=== PATIENT | female | born 1985 | race Caucasian/White ===

== ENCOUNTER 2019-04-08 00:56 | Inpatient (IN) | payer SELFPAY ==
[2019-04-08] MEDS ORDERED: Lidocaine 1% w/Epinephrine 1:100K 20 ML VIAL ONE (02:45)
[2019-04-08] MEDS ORDERED: Morphine 2 MG/ML SYRINGE ONE (02:49)
[2019-04-08 02:54] LABS: #Eosinphils 0.1 thou/uL (0.0-0.7); #Lymphocytes 1.9 thou/uL (1.20-3.40); #Monocytes 0.8 thou/uL (0.11-0.59); #Neutrophils 6.3 thou/uL (1.40-6.50); %Basophils 0.5 % (0.0-1.0); %Eosinophils 0.9 % (0.0-10.0); %Lymphocytes 20.5 % (21.0-51.0); %Monocytes 8.7 % (0.0-10.0); %Neutrophils 69.4 % (42.0-75.0); Hemoglobin 12.3 g/dL (12.0-16.0); Mean Corpuscular HGB CONC 33.1 g/dL (32.0-36.0); Mean Corpuscular Hemoglobin 35.4 pg (27.0-31.0); Mean Platelet Volume 6.8 fL (7.4-10.4); Platelet Count 307 thou/uL (130-400); RBC Distribution Width 11.2 % (11.5-14.5); Red Blood Cell (RBC) Count 3.46 mill/uL (4.20-5.40); White Blood Cell (WBC) Count 9.1 thou/uL (4.8-10.8)
[2019-04-08 03:01] LABS: Anion Gap 13 mmol/L (10-20); BUN (Urea Nitrogen) 12 mg/dL (7.0-18.7); CK (CPK) 224 U/L (29-168); Calc. Creatinine Clearance 0 mL/min (70-130); Carbon Dioxide 22 mmol/L (22-29); Chloride 107 mmol/L (98-107); Estimated GFR-MDRD Greater than 90; Glucose 93 mg/dL (70-105); Potassium 3.6 mmol/L (3.5-5.1); Sodium 138 mmol/L (136-145)
[2019-04-08] MEDS ORDERED: Metoclopramide HCl 10 MG/2 ML VIAL ONE (03:51)
[2019-04-08 05:40] VITALS: BMI 23.6
[2019-04-08] MEDS ORDERED: MEROPENEM 1 GM/50 ML BAG IVPB SCH (06:00)
[2019-04-08] MEDS ORDERED: D5W IVPB SCH (06:00)
[2019-04-08] MEDS ORDERED: ADMIXTURE FEE CHEMO IVPB SCH (06:00)
[2019-04-08] MEDS ORDERED: CLINDAMYCIN IVPB SCH (06:00)
[2019-04-08] MEDS ORDERED: Morphine 4 MG/ML VIAL SLOW IVP SCH (06:15)
[2019-04-08] MEDS ORDERED: D5 1/2 NS w/20 mEq KCL 1,000 ML IV SCH (06:15)
[2019-04-08 06:34] LABS: #Eosinphils 0.1 thou/uL (0.0-0.7); #Monocytes 0.7 thou/uL (0.11-0.59); %Basophils 0.2 % (0.0-1.0); %Eosinophils 0.8 % (0.0-10.0); %Lymphocytes 22.3 % (21.0-51.0); %Monocytes 8.4 % (0.0-10.0); %Neutrophils 68.3 % (42.0-75.0); Hemoglobin 11.8 g/dL (12.0-16.0); Mean Corpuscular Hemoglobin 35.2 pg (27.0-31.0); Mean Platelet Volume 6.7 fL (7.4-10.4); Platelet Count 305 thou/uL (130-400); RBC Distribution Width 11.2 % (11.5-14.5); Red Blood Cell (RBC) Count 3.35 mill/uL (4.20-5.40); White Blood Cell (WBC) Count 8.8 thou/uL (4.8-10.8)
[2019-04-08 06:51] LABS: Lactic Acid 0.8 mmol/L (0.5-2.2)
[2019-04-08] MEDS ORDERED: Fentanyl 100 MCG/2 ML VIAL ONE (06:57)
[2019-04-08] MEDS ORDERED: Midazolam HCl 2 mg/2 ml Vial ONE (06:57)
[2019-04-08] MEDS ORDERED: Bupivacaine/Epinephrine 0.25% 30 ML VIAL ONE (07:05)
--- NOTE | 2019-04-08 07:05 | CON ---
DATE OF CONSULTATION: 04/08/2019 CHIEF COMPLAINT: Infection, right arm. HISTORY OF PRESENT ILLNESS: This is a 33-year-old female who presents with necrotizing fasciitis to her right arm. She injected methamphetamine in her right medial posterior forearm a few days ago. She has had progressive increasing pain. She has no motor or sensory loss to the hand. She states, however, it is painful to move and she has some paresthesias in the right hand. CT scan confirms a deep space infection. She has meropenem and clindamycin ordered. PAST MEDICAL HISTORY: 1. She notes lupus and antiphospholipid syndrome. States that she has had a PE in the past, but she cannot recall. She takes no blood thinners daily. 2. History of trauma. PAST SURGICAL HISTORY: She denies. MEDICATIONS TAKEN DAILY: None. ALLERGIES: PENICILLIN. SOCIAL HISTORY: She smokes. She smokes pot. She drinks alcohol 1 or 2 drinks daily. She almost daily uses meth. REVIEW OF SYSTEMS: Otherwise negative. PHYSICAL EXAMINATION: VITAL SIGNS: Pulse 85, respirations 20, temperature 98.5, blood pressure 135/92. HEENT: Sclerae anicteric. Oropharynx clear. NECK: No lymphadenopathy. CHEST: Clear. HEART: Regular rate and rhythm. ABDOMEN: Soft, nontender. EXTREMITY: Pulses are 2+, palpable. She has a few in her left antecubital fossa without significant infection. She has significant swelling and edema to the right upper extremity, very tender to touch, redness. There is no bulla formation. There is no obvious crepitance. DIAGNOSTIC DATA: CT scan again shows deep soft tissue infection right on the muscle underneath the fascia. ASSESSMENT: 1. Necrotizing fasciitis, right arm. 2. Polysubstance abuse. 3. Lupus and question of antiphospholipid syndrome. PLAN: She will need urgent debridement, incision and drainage. We will do that this morning plus or minus wound VAC and multiple debridements. Risks, benefits, and alternatives were discussed. She understands the risk of bleeding, infection, scarring, need for further revision or debridement. She understands the potential for motor or sensory loss that is permanent, permanent disability, even limb loss. We will do this today. Job ID: [id number]
[2019-04-08] MEDS ORDERED: Ondansetron PF 4 MG/2 ML Vial ONE (07:06)
--- NOTE | 2019-04-08 08:47 | CT ---
PRELIMINARY REPORT/[facility]/EMERGENCY AFTER HOURS PROCEDURE: EXAM: CT Right Upper Extremity With Contrast, Elbow EXAM DATE/TIME: 04/08/2019 2:26 AM CLINICAL HISTORY: 33 years old, female; Pain and signs and symptoms; Right; Patient HX: Er 2. PT reports to er xfr from [place] with necrotizing fascitis, comes to this er for infectious disease, SX. R elbow redness /hot to touch/swelling. TECHNIQUE: Imaging protocol: CT of the Right upper extremity with intravenous contrast was performed. Exam focus ed on the elbow. Coronal and sagittal reformatted images were created and reviewed. COMPARISON: No relevant prior studies available. FINDINGS: Bones/joints: Normal. No acute fracture or dislocation. Soft tissues: Extensive inflammation of subcutaneous tissue of the forearm, elbow, and upper arm with nonencapsulated fluid in the subcutaneous tissue of the posterior elbow. Findings are compatible wit h cellulitis. In the deep subcutaneous tissue of the lateral antecubital fossa, there is a cluster of foci of gas without history of iatrogenic intervention. This finding could represent necrotizing fas ciitis or could be secondary to expression of abscess or recent needle injection by patient. Medial t o the aforementioned cluster of gas, along the medial aspect of the proximal brachioradialis muscle (image 85, series 2) there is an approximately 1.2 cm fluid collection suspicious for an abscess. Vasculature: There is nonocclusive clot in the cephalic vein at the elbow and proximal forearm. IMPRESSION: 1. Extensive inflammation of subcutaneous tissue of the forearm, elbow, and upper arm with nonencapsu lated fluid in the subcutaneous tissue of the posterior elbow. Findings are compatible with celluliti s. 2. In the deep subcutaneous tissue of the lateral antecubital fossa, there is a cluster of foci of ga s without history of iatrogenic intervention. This finding could represent necrotizing fasciitis or c ould be secondary to expression of abscess or recent needle injection by patient. 3. Medial to the aforementioned cluster of gas, along the medial aspect of the proximal brachioradial is muscle (image 85, series 2) there is an approximately 1.2 cm fluid collection suspicious for an ab scess. 4. There is nonocclusive clot in the cephalic vein at the elbow and proximal forearm. Findings discussed with GOLD CARUSO MD at time of interpretation. Thank you for allowing us to participate in the care of your patient. Dictated and Authenticated by: Manfred Carlson MD 04/08/2019 2:56 AM Central Time ([place] & [place]) FINAL REPORT RIGHT UPPER EXTREMITY CT SCAN WITH IV CONTRAST: EMERGENT AFTER HOUR EXAM TIME: 2:28 a.m. DATE: 04/08/2019. There is diffuse subcutaneous fat stranding and fluid of the region primarily around the elbow includ ing some posterior fluid overlying the olecranon as well as a gas and fluid collection approximately 1.2 cm overlying the proximal brachial radialis muscle concerning for an abscess. There is a 2nd sma ll focus of subcutaneous gas slightly more cranial in location, both of these areas are concerning fo r infection with possibilities including that of small abscesses versus post injection changes or sparkle n the possibility of some superficial necrosing fasciitis. No evidence of deep necrosing fasciitis o intramuscular necrosis or abscess. Note of intraluminal thrombus within a portion of the cephalic v ein primarily at the level of the elbow. This report is in agreement with the preliminary report given by [facility]. POS: [facility]
[2019-04-08] MEDS ORDERED: Promethazine HCl 25 MG/ML VIAL IM PRN ×4 (08:49→09:10)
[2019-04-08] MEDS ORDERED: Dextrose 5% in Water 1,000 ML IV PRN (08:49)
[2019-04-08] MEDS ORDERED: TETANUS AND DIPHTHERIA TOX/PF 0.5 ML DISP.SYRIN IM ONE (08:49)
[2019-04-08] MEDS ORDERED: Ondansetron ODT 4 MG TAB PO PRN (08:49)
[2019-04-08] MEDS ORDERED: hydrALAZINE 20 MG/ML VIAL SLOW IVP PRN ×2 (08:49→11:43)
[2019-04-08] MEDS ORDERED: Ondansetron PF 4 MG/2 ML Vial IVP PRN ×2 (08:49→08:51)
[2019-04-08] MEDS ORDERED: Dextrose 50% Abboject 50 ML SYRINGE SLOW IVP PRN (08:49)
[2019-04-08] MEDS ORDERED: Acetaminophen 1,000 MG in Premix Bag 1 BAG IVPB PRN (08:49)
[2019-04-08] MEDS ORDERED: diphenhydrAMINE 50 MG/ML VIAL IVP PRN ×2 (08:51→09:10)
[2019-04-08] MEDS ORDERED: Naloxone HCl 0.4 mg/ml Vial IV PRN ×2 (08:51→09:10)
[2019-04-08] MEDS ORDERED: diphenhydrAMINE 25 MG CAP PO PRN ×2 (08:51→09:10)
[2019-04-08] MEDS ORDERED: Ondansetron HCl/PF 4 MG/2 ML Vial IVP PRN (08:51)
[2019-04-08] MEDS ORDERED: diphenhydrAMINE 50 MG/ML VIAL IM PRN ×2 (08:51→09:10)
[2019-04-08] MEDS ORDERED: Promethazine HCl 25 MG/ML VIAL SLOW IVP PRN (08:51)
[2019-04-08] MEDS ORDERED: Zolpidem Tartrate 5 MG TAB PO PRN ×2 (08:51→09:10)
[2019-04-08] MEDS ORDERED: Vancomycin HCl 1 GM in Premix Bag 1 BAG IVPB SCH (09:00)
[2019-04-08] MEDS ORDERED: Communication Order-Pharmacy FS SCH ×2 (09:00→09:15)
[2019-04-08] MEDS ORDERED: ISOVUE-370 76%-LOCM 1 ML ONE (10:53)
[2019-04-08] MEDS ORDERED: cloNIDine 0.1 MG TAB PO PRN (11:39)
[2019-04-08] MEDS ORDERED: Labetalol HCl 100 MG/20 ML VIAL SLOW IVP PRN (11:43)
[2019-04-08] MEDS: Vancomycin HCl 1.5 GM in Sodium Chloride 0.9% 250 ML 300 ML IVPB SCH ×2 (11:44→21:49)
[2019-04-08] MEDS ORDERED: Atorvastatin Calcium 10 MG TAB PO SCH (11:45)
[2019-04-08] MEDS: Lorazepam 2 MG/ML VIAL SLOW IVP PRN ×2 (11:46→19:08)
--- NOTE | 2019-04-08 11:51 | OP ---
DATE OF PROCEDURE: 04/08/2019 PREOPERATIVE DIAGNOSIS: Necrotizing fasciitis, right arm. POSTOPERATIVE DIAGNOSIS: Necrotizing fasciitis, right arm. PROCEDURE PERFORMED: Wide local debridement of right arm necrotizing fasciitis down to muscle compartment. TONGUE AND QUARTER STITCHER: Ken Lynn MD ANESTHESIA: General. ESTIMATED BLOOD LOSS: Minimal. COMPLICATIONS: None. SPECIMENS: Cultures taken for anaerobes and aerobes. DESCRIPTION OF PROCEDURE: The patient was taken to the operating room and laid supine on the operating room table. After general anesthetic, the right upper extremity was prepped and draped in a circumferential fashion to the shoulder. She had fluctuant area to the lateral antecubital fossa. An incision was made from this to an indurated area in the upper biceps area all the way down to the 3rd indurated area on the right anterior forearm. Dissection was taken through the subcutaneous tissue to the fascia. The fascia was opened for the entirety of the wound. There was a collection of pus just underneath the antecubital fossa with some necrotic-looking tissue. This was all debrided. All loculations were broken up. There was no muscle involvement. There was no nonviable muscle present. The pocket of pus in the antecubital does extend around posteriorly. All loculations were broken up with this. Pulsavac was used to irrigate the wound. Wound care places the wound VAC. The basilic vein had to be taken with Vicryl ties because it was right in the middle of the fascial involved area. The patient was sent to Recovery in stable condition. She will need staged debridement in 48 hours. Job ID: [id number]
[2019-04-08] MEDS: Famotidine 20 MG TAB PO SCH ×2 (12:35→19:51)
[2019-04-08] MEDS: D5 1/2 NS w/20 mEq KCL 1,000 ML IV SCH ×2 (12:35→15:50)
[2019-04-08] MEDS ORDERED: Succinylcholine Chloride 20 MG/ML 10 ml SYRINGE FS ONE (13:24)
[2019-04-08] MEDS ORDERED: PROPOFOL 200 MG/20 ML VIAL ONE (13:24)
--- NOTE | 2019-04-08 13:32 | HP ---
PRIMARY CARE PHYSICIAN: The patient does not have a primary care physician. CHIEF COMPLAINT: Infection in the right arm. HISTORY OF PRESENT ILLNESS: Ms. Wild is a 33-year-old female, who has a history of systemic lupus as well as lupus anticoagulant syndrome and hypertension. Currently, she is quite agitated and wants a cigarette and therefore, I am unable to get much history. She is tearful and says that this is the end of her days and that she just wants to smoke a cigarette. She says this repeatedly. I am unable to get any of the details for her current hospital stay other than what was in the records, but apparently she has apparently injected methamphetamine into her right arm and then developed a deep infection. She has already been in surgery to have this I and D'd, and a wound VAC has been placed. Currently, again, I am unable to get any other history as she goes from being agitated to tearful and no other history is obtainable. REVIEW OF SYSTEMS: Unobtainable. PAST MEDICAL HISTORY: Significant for systemic lupus and hypertension. PAST SURGICAL HISTORY: Negative. ALLERGIES: TO PENICILLIN. SOCIAL HISTORY: This is unobtainable, but she does admit to using the methamphetamine and she is a smoker as she is asking for cigarettes. FAMILY HISTORY: Significant for lupus. CURRENT MEDICATIONS: None. PHYSICAL EXAMINATION: GENERAL: She is alert and oriented. She is agitated, actually had to leave while doing the history and physical to go to calm her down. VITAL SIGNS: Her blood pressure is 135/92, heart rate 85, respiratory rate of 20, and temperature is 98.5. HEENT: Her pupils are equal, round, and reactive. Extraocular muscles are intact. Her sclerae are anicteric. Throat, no erythema and no exudates. NECK: No adenopathy. No bruits. LUNGS: She has bilateral wheezing and rhonchi. CARDIOVASCULAR: She has a normal S1, S2. There is no S3 or S4. No murmurs, clicks or rubs. ABDOMEN: Soft. It is nontender and nondistended. Positive for bowel sounds. There is no rebound or guarding. EXTREMITIES: There is no edema. NEUROLOGIC: Her exam is nonfocal. LABORATORY RESULTS: White blood cell count 8.8, hemoglobin 11.8, hematocrit is 35.8, and platelet count is 305. Sodium 138, potassium 3.6, chloride is 107, CO2 is 22, BUN of 12, creatinine 0.73, and glucose is 93. ASSESSMENT AND PLAN: 1. This is a 33-year-old female, who presents with a cellulitis and deep abscess of the right arm due to methamphetamine injection. She has already been seen by Surgery and has had the area I and D'd and has a wound VAC in place. We will continue IV antibiotics and local wound care. 2. For elevated blood pressure, we will use clonidine p.r.n. and likely start her on a scheduled antihypertensive. 3. Agitation, anxiety, and suicidal ideation. This could be due to the toxic effect of the methamphetamine. Hopefully, after she recovers from the acute toxic effect of the drug, her symptoms will calm down. We have placed her with a sitter and will also have p.r.n. Ativan available, and we will consult [facility] once she is more clinically stable. Job ID: [id number]
[2019-04-08] MEDS: MEROPENEM 1 GM/50 ML 1 GM in Premix Bag 1 BAG IVPB SCH ×2 (15:47→23:16)
[2019-04-09] MEDS: Lorazepam 2 MG/ML VIAL SLOW IVP PRN (05:24)
[2019-04-09] MEDS: D5 1/2 NS w/20 mEq KCL 1,000 ML IV SCH ×2 (05:24→16:58)
[2019-04-09 07:07] LABS: #Basophils 0.1 thou/uL (0.0-0.2); #Eosinphils 0.1 thou/uL (0.0-0.7); #Lymphocytes 1.5 thou/uL (1.20-3.40); #Monocytes 0.5 thou/uL (0.11-0.59); #Neutrophils 3.4 thou/uL (1.40-6.50); %Eosinophils 1.4 % (0.0-10.0); %Lymphocytes 27.5 % (21.0-51.0); %Monocytes 9.3 % (0.0-10.0); %Neutrophils 60.8 % (42.0-75.0); Hemoglobin 12.1 g/dL (12.0-16.0); Mean Corpuscular HGB CONC 33.6 g/dL (32.0-36.0); Mean Corpuscular Hemoglobin 35.9 pg (27.0-31.0); Mean Platelet Volume 6.7 fL (7.4-10.4); Platelet Count 288 thou/uL (130-400); RBC Distribution Width 11.1 % (11.5-14.5); Red Blood Cell (RBC) Count 3.38 mill/uL (4.20-5.40); White Blood Cell (WBC) Count 5.6 thou/uL (4.8-10.8)
[2019-04-09 07:25] LABS: Anion Gap 10 mmol/L (10-20); BUN (Urea Nitrogen) 6 mg/dL (7.0-18.7); Calc. Creatinine Clearance 143 mL/min (70-130); Calcium 8.8 mg/dL (7.8-10.44); Carbon Dioxide 27 mmol/L (22-29); Chloride 105 mmol/L (98-107); Estimated GFR-MDRD Greater than 90; Glucose 93 mg/dL (70-105); Potassium 3.7 mmol/L (3.5-5.1); Sodium 138 mmol/L (136-145)
[2019-04-09] MEDS: MEROPENEM 1 GM/50 ML 1 GM in Premix Bag 1 BAG IVPB SCH ×3 (08:56→23:50)
[2019-04-09] MEDS: Famotidine 20 MG TAB PO SCH ×2 (08:58→21:35)
[2019-04-09] MEDS: Vancomycin HCl 1.5 GM in Sodium Chloride 0.9% 250 ML 300 ML IVPB SCH ×2 (10:33→22:32)
--- NOTE | 2019-04-09 14:45 | PDOC.PN ---
- Subjective Encounter Start Date: 04/09/19 Encounter Start Time: 11:00 Ms. Wild was seen today in follow-up. she is a bit less agitated today. Her only concern today is whether her boyfriend plans to see her today or not. - Objective MAR Reviewed: Yes Vital Signs & Weight: Vital Signs (12 hours) Temp Pulse Resp BP Pulse Ox 04/09/19 11:44 98.2 F 92 16 101/67 96 04/09/19 08:56 99 04/09/19 07:41 98.5 F 117 H 16 146/86 H 99 Weight Admit Weight 155 lb 8 oz Weight 155 lb 8 oz I&O: 04/08/19 04/09/19 04/10/19 06:59 06:59 06:59 Intake Total 667.5 1440 Balance 667.5 1440 Result Diagrams: 04/09/19 06:45 04/09/19 06:45 Phys Exam - Physical Examination HEENT: PERRLA Respiratory: no wheezing, no rales, no rhonchi, clear to auscultation bilateral Cardiovascular: RRR, no significant murmur, no rub Gastrointestinal: soft, non-tender, no distention, positive bowel sounds Musculoskeletal: no edema, edema present Dx/Plan (1) Necrotizing fasciitis of upper arm Code(s): M72.6 - NECROTIZING FASCIITIS Status: Acute (2) Hypertension Code(s): I10 - ESSENTIAL (PRIMARY) HYPERTENSION Status: Chronic (3) Substance abuse Code(s): F19.10 - OTHER PSYCHOACTIVE SUBSTANCE ABUSE, UNCOMPLICATED Status: Acute (4) Suicidal ideation Code(s): R45.851 - SUICIDAL IDEATIONS Status: Acute - Plan * Necrotizing faciitis of the right arm- continue IV antibiotics- wound culture is growing Bacillus spp, Non Anthrax..Continue Vancomycin and Meropenem * Can consider de-escalating antibiotics soon * HTN- blood pressure is beginning to trend down * Suicidal Ideation- continue 24 hour sitter, and she will need [facility] evaluation prior to discharge
[2019-04-09] MEDS ORDERED: Haloperidol Lactate 5 MG/ML VIAL IM PRN (18:06)
[2019-04-09] MEDS ORDERED: Vancomycin HCl 1.25 GM in Sodium Chloride 0.9% 250 ML 250 ML IVPB SCH (22:30)
[2019-04-10] MEDS: D5 1/2 NS w/20 mEq KCL 1,000 ML IV SCH ×3 (04:20→19:01)
[2019-04-10] MEDS: Vancomycin HCl 1.25 GM in Sodium Chloride 0.9% 250 ML 250 ML IVPB SCH ×3 (05:13→21:54)
[2019-04-10] MEDS: Famotidine 20 MG TAB PO SCH ×2 (07:50→21:51)
[2019-04-10] MEDS: MEROPENEM 1 GM/50 ML 1 GM in Premix Bag 1 BAG IVPB SCH ×3 (08:08→23:24)
[2019-04-10] MEDS ORDERED: Bupivacaine/Epinephrine 0.25% 30 ML VIAL ONE (10:34)
[2019-04-10] MEDS ORDERED: Fentanyl 100 MCG/2 ML VIAL ONE (10:46)
[2019-04-10] MEDS ORDERED: Meperidine HCl/PF 25 MG/ML VIAL SLOW IVP PRN (11:51)
[2019-04-10] MEDS ORDERED: Promethazine HCl 25 MG/ML VIAL SLOW IVP PRN (11:51)
[2019-04-10] MEDS ORDERED: Promethazine HCl 25 MG/ML VIAL IM PRN (11:51)
[2019-04-10] MEDS ORDERED: Ondansetron HCl/PF 4 MG/2 ML Vial IVP PRN (11:51)
--- NOTE | 2019-04-10 13:01 | OP ---
DATE OF PROCEDURE: 04/10/2019 PREOPERATIVE DIAGNOSIS: Necrotizing fasciitis, right arm. POSTOPERATIVE DIAGNOSIS: Necrotizing fasciitis, right arm. PROCEDURE PERFORMED: Wound washout and VAC placement under anesthesia. ANESTHESIA: General. BLOOD LOSS: None. COMPLICATIONS: None. SPECIMENS: None. FINDINGS: There was no additional debridement needed. There was no purulence. No pockets. No additional fasciitis. Wound VAC was replaced. DESCRIPTION OF PROCEDURE: The patient was taken to the operating room and laid supine on the operating room table. After general anesthetic was obtained, the right upper extremity was prepped and draped in a sterile fashion. After the VAC top cover was removed, the Adaptic, the 3 pieces of foam were removed. The wound was washed out using copious amounts of sterile saline. There were few bleeders in the subcutaneous tissue. There was no purulence. There was no ongoing infection. There was no fasciitis or necrotic tissue present. There were no additional pockets on the arm. After irrigation, the wound care team came in and put the wound VAC back on. Job ID: [id number]
--- NOTE | 2019-04-10 13:43 | PDOC.PN ---
- Subjective Encounter Start Date: 04/10/19 Encounter Start Time: 13:38 Ms. Wild was seen today in follow-up of necrotizing fasciitis of the arm. She continues to complain that she would like to smoke, but she is refusing the nicotine patch. She has been verbally abusive to staff as well. - Objective MAR Reviewed: Yes Vital Signs & Weight: Vital Signs (12 hours) Temp Pulse Resp BP Pulse Ox 04/10/19 08:00 100 04/10/19 07:19 97.7 F 66 16 100/68 98 04/10/19 04:20 98.2 F 82 20 122/87 100 Weight Admit Weight 155 lb 8 oz Weight 155 lb 8 oz I&O: 04/09/19 04/10/19 04/11/19 06:59 06:59 06:59 Intake Total 667.5 4130 Balance 667.5 4130 Result Diagrams: 04/09/19 06:45 04/09/19 06:45 Phys Exam - Physical Examination HEENT: PERRLA Respiratory: no wheezing, no rales, no rhonchi, clear to auscultation bilateral Cardiovascular: RRR, no significant murmur, no rub Gastrointestinal: soft, non-tender, no distention, positive bowel sounds Musculoskeletal: pulses present, edema present + swelling in the right upper extremity and wound vac is in place no lower extremity edema Dx/Plan (1) Necrotizing fasciitis of upper arm Code(s): M72.6 - NECROTIZING FASCIITIS Status: Acute (2) Hypertension Code(s): I10 - ESSENTIAL (PRIMARY) HYPERTENSION Status: Chronic (3) Substance abuse Code(s): F19.10 - OTHER PSYCHOACTIVE SUBSTANCE ABUSE, UNCOMPLICATED Status: Acute (4) Suicidal ideation Code(s): R45.851 - SUICIDAL IDEATIONS Status: Acute - Plan * Necrotizing fasciitis of the right upper extremity- wound vac is in place- culture from the wound is growing Bascillus spp. Non Anthax * Will continue the current antibiotics * Consult ID for antibiotic choice and length of therapy * HTN- blood pressure is stable * Suicidal Ideation- will ask [facility] to complete an evaluation as to her suicide potential. She tells me she is no longer suicidal, and she was only saying this because she was " coming of the Anesthesia in a bad way". She has stated this emphatically to me and the other staff caring for her.
[2019-04-10] MEDS ORDERED: Succinylcholine Chloride 20 MG/ML 10 ml SYRINGE FS ONE (15:49)
[2019-04-10] MEDS ORDERED: Ondansetron PF 4 MG/2 ML Vial ONE (15:49)
[2019-04-10] MEDS ORDERED: PROPOFOL 200 MG/20 ML VIAL ONE (15:49)
[2019-04-10] MEDS ORDERED: Lidocaine 1% PF 5 ML VIAL ONE (15:49)
[2019-04-10] MEDS: Lorazepam 2 MG/ML VIAL SLOW IVP PRN ×2 (15:59→21:14)
[2019-04-10] MEDS ORDERED: Ziprasidone 20 MG VIAL IM PRN (21:26)
[2019-04-10] MEDS ORDERED: Sterile Water 10 ML VIAL FS PRN (21:35)
[2019-04-11] MEDS: D5 1/2 NS w/20 mEq KCL 1,000 ML IV SCH ×3 (03:46→20:34)
[2019-04-11] MEDS: Vancomycin HCl 1.25 GM in Sodium Chloride 0.9% 250 ML 250 ML IVPB SCH ×3 (05:36→23:25)
--- NOTE | 2019-04-11 07:32 | PDOC.GSPN ---
Surgery Progress Note: Subj - Subjective Patient reports: pain well controlled Narrative: She specifically denies suicidal ideation or desire to harm herself or others Surgery Progress Note: Obj - Vital signs Vital signs: Vital Signs - Most Recent Temp Pulse Resp BP Pulse Ox 97.8 F 81 16 105/71 98 04/11/19 03:30 04/11/19 03:30 04/11/19 03:30 04/11/19 03:30 04/11/19 03:30 - Physical Exam General: no distress Cardiovascular: regular rate and rhythm Respiratory: clear to auscultation Wound: wound vac Surgery Progress Note: Results - Labs Result Diagrams: 04/09/19 06:45 04/09/19 06:45 Lab results: Laboratory Results - last 24 hr 04/10/19 21:06 Vancomycin Trough 14.0 Surgery Progress Note: A/P - Problem (1) Necrotizing fasciitis of upper arm Current Visit: Yes Code(s): M72.6 - NECROTIZING FASCIITIS Status: Acute - Plan Plan: Will take suicidal watch off -Continue wound vac -dressing change tomorrow in OR
[2019-04-11] MEDS: Famotidine 20 MG TAB PO SCH ×2 (08:16→20:31)
[2019-04-11] MEDS: MEROPENEM 1 GM/50 ML 1 GM in Premix Bag 1 BAG IVPB SCH ×2 (08:16→16:18)
[2019-04-11] MEDS ORDERED: cloNIDine 0.1 MG TAB PO PRN (11:22)
--- NOTE | 2019-04-11 11:24 | PDOC.PN ---
- Subjective Encounter Start Date: 04/11/19 Encounter Start Time: 11:22 Patient seen and examined for Rt arm nec fasc. Pain controlled. No diarrhea. No new complaints. No overnight events - Objective MAR Reviewed: Yes Vital Signs & Weight: Vital Signs (12 hours) Temp Pulse Resp BP Pulse Ox 04/11/19 08:10 98 04/11/19 08:00 98.3 F 83 16 121/82 98 04/11/19 03:30 97.8 F 81 16 105/71 98 04/10/19 23:23 98.2 F 85 20 133/85 98 Weight Admit Weight 155 lb 8 oz Weight 155 lb 8 oz I&O: 04/10/19 04/11/19 04/12/19 06:59 06:59 06:59 Intake Total 4130 1310 Balance 4130 1310 Result Diagrams: 04/09/19 06:45 04/09/19 06:45 Radiology Reviewed by me: Yes (RUE XR - reviewed) Phys Exam - Physical Examination Constitutional: NAD Respiratory: no wheezing, no rhonchi Cardiovascular: RRR, no rub Gastrointestinal: soft, non-tender, positive bowel sounds Musculoskeletal: no edema RUE wound vac+ Neurological: moves all 4 limbs Dx/Plan - Plan DVT proph w/SCDs IMPRESSION: Necrotizing fascitis of Right arm s/p I&D HTN Polysubstance abuse PCN allergy PLAN: Cont Vanc/Meropenem NPO past MN for surgery in AM Monitor Vancomycin level On [employer] for pain control Cont current meds as below Treat constipation Review of Systems - Review of Systems Respiratory: negative: Cough, Dry, Shortness of Breath, Hemoptysis, SOB with Excertion, Pleuritic Pain, Sputum, Wheezing Cardiovascular: negative: chest pain, palpitations, orthopnea, paroxysmal nocturnal dyspnea, edema, light headedness, other Gastrointestinal: Constipation. negative: Nausea, Vomiting, Abdominal Pain, Diarrhea, Melena, Hematochezia, Other - Medications/Allergies Allergies/Adverse Reactions: Allergies Allergy/AdvReac Type Severity Reaction Status Date / Time Penicillins Allergy Verified 04/08/19 21:49 Medications: Current Medications Albuterol/Ipratropium (Duoneb) 3 ml NEB Q4H PRN PRN Reason: Wheezing Clonidine (Catapres) 0.1 mg PO Q4H PRN PRN Reason: SBP Greater Than 180 Dextrose/Water (Dextrose 50%) 25 gm SLOW IVP PRN PRN PRN Reason: Hypoglycemia Diphenhydramine HCl (Benadryl) 25 mg IVP Q3H PRN PRN Reason: Itching Diphenhydramine HCl (Benadryl) 25 mg PO Q3H PRN PRN Reason: Itching Diphenhydramine HCl (Benadryl) 25 mg IM Q3H PRN PRN Reason: Itching Famotidine (Pepcid) 20 mg PO BID [facility] Last Admin: 04/11/19 08:16 Dose: 20 mg Glucagon (Glucagon) 1 mg IM PRN PRN PRN Reason: Hypoglycemia Hydralazine HCl (Apresoline) 10 mg SLOW IVP Q4H PRN PRN Reason: SBP > 180 and HR < 70 Potassium Chloride/Dextrose/Sod Cl (D5 1/2 Ns W/20 Meq Kcl) 1,000 mls @ 120 mls /hr IV .Q8H20M [facility] Last Admin: 04/11/19 08:16 Dose: 1,000 mls Dextrose/Water (D5w) 1,000 mls @ 0 mls/hr IV .Q0M PRN PRN Reason: Hypoglycemia Meropenem 1 gm/ Device 50 mls @ 100 mls/hr IVPB 0800,1600,[id number] [facility] Last Admin: 04/11/19 08:16 Dose: 50 mls Fentanyl Citrate 2,000 mcg/ (Sodium Chloride) 100 mls @ 0 mls/hr IV INF PRN PRN Reason: Pain Vancomycin HCl 1.25 gm/ Sodium (Chloride) 250 mls @ 166.667 mls/hr IVPB Q8HR [facility] Last Admin: 04/11/19 05:36 Dose: 250 mls Lorazepam (Ativan) 2 mg SLOW IVP Q6H PRN PRN Reason: Anxiety/Agitation Last Admin: 04/10/19 21:14 Dose: 2 mg Miscellaneous Medication (Pharmacy To Dose) 1 each IVPB ONE PRN PRN Reason: DOSING Stop: 05/08/19 09:09 Multivitamins (Theragran) 1 tab PO DAILY [facility] Naloxone HCl (Narcan) 0.2 mg IV Q5MIN PRN PRN Reason: Opiate Reversal Ondansetron HCl (Zofran) 4 mg IVP Q6H PRN PRN Reason: Nausea/Vomiting Promethazine HCl (Phenergan) 12.5 mg IM Q4H PRN PRN Reason: Nausea/Vomiting Saccharomyces Boulardii (Florastor) 250 mg PO DAILY [facility] Senna/Docusate Sodium (Senokot S) 1 tab PO BID [facility] Sodium Chloride (Flush - Normal Saline) 10 ml IVF PRN PRN PRN Reason: Saline Flush Zolpidem Tartrate (Ambien) 5 mg PO HSPRN PRN PRN Reason: Insomnia
[2019-04-11] MEDS ORDERED: Polyethylene Glycol 3350 17 GM Packet PO PRN (11:26)
[2019-04-11] MEDS: Senokot S 8.6-50 MG TAB PO SCH (20:31)
[2019-04-11 22:07] LABS: Vancomycin, Trough 16.2 ug/mL
[2019-04-12] MEDS: MEROPENEM 1 GM/50 ML 1 GM in Premix Bag 1 BAG IVPB SCH ×3 (00:46→16:46)
[2019-04-12] MEDS: D5 1/2 NS w/20 mEq KCL 1,000 ML IV SCH ×2 (05:34→20:32)
[2019-04-12] MEDS: Vancomycin HCl 1.25 GM in Sodium Chloride 0.9% 250 ML 250 ML IVPB SCH ×3 (07:37→23:29)
[2019-04-12] MEDS: Multivit, Therapeutic 1 TAB PO SCH (10:46)
[2019-04-12] MEDS: Famotidine 20 MG TAB PO SCH ×2 (10:46→21:17)
[2019-04-12] MEDS: Saccharomyces boulardii 250 MG CAP PO SCH (10:54)
[2019-04-12] MEDS: Senokot S 8.6-50 MG TAB PO SCH ×2 (10:55→21:17)
[2019-04-12] MEDS ORDERED: Ondansetron PF 4 MG/2 ML Vial ONE (11:07)
[2019-04-12] MEDS ORDERED: PROPOFOL 200 MG/20 ML VIAL ONE (11:07)
[2019-04-12] MEDS ORDERED: Dexamethasone 20 MG/5 ML VIAL ONE (11:07)
[2019-04-12] MEDS ORDERED: Lidocaine 1% PF 5 ML VIAL ONE (11:07)
[2019-04-12] MEDS ORDERED: Bupivacaine HCl 0.5%/Epinephrine 1:200,000/PF 30 ml Vial ONE (17:31)
[2019-04-12 17:55] LABS: BHCG - Serum Negative (NEGATIVE); Pregs Control Background? CLEAR/WHITE (CLR/WHITE); Pregs Control Bar Appear? YES (CONTROL BAR)
[2019-04-12] MEDS ORDERED: Midazolam HCl 2 mg/2 ml Vial ONE (19:01)
[2019-04-12] MEDS ORDERED: Fentanyl 100 MCG/2 ML VIAL ONE ×3 (19:01→20:21)
[2019-04-12] MEDS ORDERED: Promethazine HCl 25 MG/ML VIAL IM PRN (20:04)
[2019-04-12] MEDS ORDERED: HYDROmorphone 2 MG/ML VIAL SLOW IVP PRN (20:04)
[2019-04-12] MEDS ORDERED: Ondansetron HCl/PF 4 MG/2 ML Vial IVP PRN (20:04)
[2019-04-12] MEDS ORDERED: Promethazine HCl 25 MG/ML VIAL SLOW IVP PRN (20:04)
[2019-04-12] MEDS ORDERED: Ketorolac Tromethamine 30 MG/ML VIAL IVP PRN (20:04)
[2019-04-12] MEDS: fentaNYL Citrate/PF 2,000 MCG in Sodium Chloride 0.9% 60 ML IV PRN (21:10)
--- NOTE | 2019-04-12 22:53 | PDOC.PN ---
- Subjective Encounter Start Date: 04/12/19 Encounter Start Time: 07:15 Patient seen and examined for RUE nec fasc. No fever. Pain controlled. No new complaints. No overnight events - Objective MAR Reviewed: Yes Vital Signs & Weight: Vital Signs (12 hours) Temp Pulse Resp BP Pulse Ox 04/12/19 15:38 98.4 F 77 16 138/74 99 04/12/19 11:39 98.1 F 77 16 111/73 100 Weight Admit Weight 155 lb 8 oz Weight 155 lb 8 oz I&O: 04/11/19 04/12/19 04/13/19 06:59 06:59 06:59 Intake Total 1310 2630 1950 Balance 1310 2630 1950 Result Diagrams: 04/09/19 06:45 04/09/19 06:45 Phys Exam - Physical Examination Constitutional: NAD Respiratory: no wheezing, no rhonchi Cardiovascular: RRR, no rub Gastrointestinal: soft, positive bowel sounds Musculoskeletal: edema present (RUE) Neurological: non-focal, moves all 4 limbs Dx/Plan - Plan DVT proph w/SCDs IMPRESSION: Necrotizing fascitis of Right arm s/p I&D HTN Polysubstance abuse PCN allergy PLAN: Cont Vanc/Meropenem NPO today for surgery Vancomycin monitoring Pain control with [employer] Cont current meds as below AM labs Review of Systems - Review of Systems Respiratory: negative: Cough, Dry, Shortness of Breath, Hemoptysis, SOB with Excertion, Pleuritic Pain, Sputum, Wheezing Cardiovascular: negative: chest pain, palpitations, orthopnea, paroxysmal nocturnal dyspnea, edema, light headedness, other Gastrointestinal: negative: Nausea, Vomiting, Abdominal Pain, Diarrhea, Constipation, Melena, Hematochezia, Other - Medications/Allergies Allergies/Adverse Reactions: Allergies Allergy/AdvReac Type Severity Reaction Status Date / Time Penicillins Allergy Verified 04/08/19 21:49 Medications: Current Medications Albuterol/Ipratropium (Duoneb) 3 ml NEB Q4H PRN PRN Reason: Wheezing Clonidine (Catapres) 0.1 mg PO Q4H PRN PRN Reason: SBP Greater Than 180 Dextrose/Water (Dextrose 50%) 25 gm SLOW IVP PRN PRN PRN Reason: Hypoglycemia Diphenhydramine HCl (Benadryl) 25 mg IVP Q3H PRN PRN Reason: Itching Last Admin: 04/12/19 02:36 Dose: 25 mg Diphenhydramine HCl (Benadryl) 25 mg PO Q3H PRN PRN Reason: Itching Diphenhydramine HCl (Benadryl) 25 mg IM Q3H PRN PRN Reason: Itching Famotidine (Pepcid) 20 mg PO BID [facility] Last Admin: 04/12/19 21:17 Dose: 20 mg Fentanyl (Pacu-Sublimaze) 50 mcg SLOW IVP Q10MIN PRN PRN Reason: Moderate to Severe Pain (6-10) Stop: 04/12/19 23:04 Glucagon (Glucagon) 1 mg IM PRN PRN PRN Reason: Hypoglycemia Hydralazine HCl (Apresoline) 10 mg SLOW IVP Q4H PRN PRN Reason: SBP > 180 and HR < 70 Hydromorphone HCl (Pacu-Dilaudid) 0.5 mg SLOW IVP Q10MIN PRN PRN Reason: Moderate to Severe Pain (6-10) Stop: 04/12/19 23:04 Potassium Chloride/Dextrose/Sod Cl (D5 1/2 Ns W/20 Meq Kcl) 1,000 mls @ 120 mls /hr IV .Q8H20M [facility] Last Admin: 04/12/19 20:32 Dose: Not Given Dextrose/Water (D5w) 1,000 mls @ 0 mls/hr IV .Q0M PRN PRN Reason: Hypoglycemia Meropenem 1 gm/ Device 50 mls @ 100 mls/hr IVPB 0800,1600,2359 [facility] Last Admin: 04/12/19 16:46 Dose: 50 mls Fentanyl Citrate 2,000 mcg/ (Sodium Chloride) 100 mls @ 0 mls/hr IV INF PRN PRN Reason: Pain Last Admin: 04/12/19 21:10 Dose: 100 mls Vancomycin HCl 1.25 gm/ Sodium (Chloride) 250 mls @ 166.667 mls/hr IVPB Q8HR [facility] Last Admin: 04/12/19 14:00 Dose: 250 mls Ketorolac Tromethamine (Pacu-Toradol) 30 mg IVP ONE PRN PRN Reason: Moderate Pain (4-6) Stop: 04/12/19 23:05 Lorazepam (Ativan) 2 mg SLOW IVP Q6H PRN PRN Reason: Anxiety/Agitation Last Admin: 04/10/19 21:14 Dose: 2 mg Miscellaneous Medication (Pharmacy To Dose) 1 each IVPB ONE PRN PRN Reason: DOSING Stop: 05/08/19 09:09 Multivitamins (Theragran) 1 tab PO DAILY [facility] Last Admin: 04/12/19 10:46 Dose: Not Given Naloxone HCl (Narcan) 0.2 mg IV Q5MIN PRN PRN Reason: Opiate Reversal Ondansetron HCl (Zofran) 4 mg IVP Q6H PRN PRN Reason: Nausea/Vomiting Ondansetron HCl (Pacu-Zofran) 4 mg IVP ONE PRN PRN Reason: Nausea/Vomiting Stop: 04/12/19 23:04 Polyethylene Glycol (Miralax) 17 gm PO DAILY PRN PRN Reason: Constipation Promethazine HCl (Phenergan) 12.5 mg IM Q4H PRN PRN Reason: Nausea/Vomiting Promethazine HCl (Pacu-Phenergan) 6.25 mg SLOW IVP ONE PRN PRN Reason: Nausea/Vomiting Stop: 04/12/19 23:04 Promethazine HCl (Pacu-Phenergan) 6.25 mg IM ONE PRN PRN Reason: Nausea/Vomiting Stop: 04/12/19 23:04 Saccharomyces Boulardii (Florastor) 250 mg PO DAILY [facility] Last Admin: 04/12/19 10:54 Dose: Not Given Senna/Docusate Sodium (Senokot S) 1 tab PO BID [facility] Last Admin: 04/12/19 21:17 Dose: 1 tab Sodium Chloride (Flush - Normal Saline) 10 ml IVF PRN PRN PRN Reason: Saline Flush Zolpidem Tartrate (Ambien) 5 mg PO HSPRN PRN PRN Reason: Insomnia
[2019-04-13] MEDS: MEROPENEM 1 GM/50 ML 1 GM in Premix Bag 1 BAG IVPB SCH ×3 (00:54→16:24)
[2019-04-13] MEDS: D5 1/2 NS w/20 mEq KCL 1,000 ML IV SCH ×4 (01:27→22:33)
--- NOTE | 2019-04-13 01:44 | OP ---
DATE OF PROCEDURE: 04/12/2019 PREOPERATIVE DIAGNOSES: Necrotizing fasciitis, right arm. Wound VAC change. POSTOPERATIVE DIAGNOSES: Necrotizing fasciitis, right arm. Wound VAC change. PROCEDURE PERFORMED: Wound VAC change with partial closure, upper and lower wound approximately an 8 cm closure. ANESTHESIA: General. DESCRIPTION OF PROCEDURE: The patient was taken to the operating room, where under general anesthesia right upper extremity wound VAC was removed. Wound prepared with Betadine and draped in routine fashion. Wound was healthy. There was no necrotic tissue. No evidence of infection. No cellulitis. The wound was irrigated and inspected and had some tunneling cephalad inferiorly. It extended from below the antecubital fossa to the upper arm. PICC line was adjacent medial. The wound was partially closed as the skin and subcutaneous tissue approximated easily in the upper and lower aspect for about 4 cm upper, 4 cm lower, and this was approximated with interrupted vertical mattress sutures of 2-0 nylon. After this was completed, wound VAC was reapplied, placing the foam just under the lip of the tunneling superiorly and inferiorly to facilitate and encourage closure in the upper wound flaps. The patient tolerated the procedure well. There was a good seal. The patient transferred to recovery in stable condition. Job ID: [id number]
[2019-04-13 05:54] LABS: #Lymphocytes 0.9 thou/uL (1.20-3.40); #Monocytes 0.3 thou/uL (0.11-0.59); #Neutrophils 5.2 thou/uL (1.40-6.50); %Basophils 0.2 % (0.0-1.0); %Eosinophils 0.4 % (0.0-10.0); %Lymphocytes 13.7 % (21.0-51.0); %Neutrophils 80.8 % (42.0-75.0); Hemoglobin 12.9 g/dL (12.0-16.0); Mean Corpuscular HGB CONC 33.4 g/dL (32.0-36.0); Mean Corpuscular Hemoglobin 35.9 pg (27.0-31.0); Platelet Count 337 thou/uL (130-400); RBC Distribution Width 10.8 % (11.5-14.5); White Blood Cell (WBC) Count 6.5 thou/uL (4.8-10.8)
[2019-04-13 06:21] LABS: Anion Gap 12 mmol/L (10-20); BUN (Urea Nitrogen) 8 mg/dL (7.0-18.7); Calc. Creatinine Clearance 136 mL/min (70-130); Calcium 9.6 mg/dL (7.8-10.44); Carbon Dioxide 27 mmol/L (22-29); Chloride 104 mmol/L (98-107); Estimated GFR-MDRD Greater than 90; Glucose 164 mg/dL (70-105); Potassium 4.2 mmol/L (3.5-5.1); Sodium 139 mmol/L (136-145)
[2019-04-13] MEDS: Vancomycin HCl 1.25 GM in Sodium Chloride 0.9% 250 ML 250 ML IVPB SCH ×2 (06:34→14:40)
[2019-04-13] MEDS: Multivit, Therapeutic 1 TAB PO SCH (09:36)
[2019-04-13] MEDS: Saccharomyces boulardii 250 MG CAP PO SCH (09:36)
[2019-04-13] MEDS: Senokot S 8.6-50 MG TAB PO SCH ×2 (09:36→20:51)
[2019-04-13] MEDS: Famotidine 20 MG TAB PO SCH ×2 (09:36→20:51)
--- NOTE | 2019-04-13 12:21 | PRG ---
DATE OF SERVICE: 04/13/2019 Joanna Wild is doing well today. Yesterday, she had changed her wound VAC under anesthesia. Future change to the wound VAC will not be done under anesthesia. Yesterday, I closed a 4 cm segment of her wound upper and 4 cm lower. The wound looks very healthy. There is no cellulitis. No evidence of infection. There is no necrotic tissue. Wound VAC was reapplied. Overall, she is doing well. She is tolerating her diet. She remains afebrile. Cultures noted. She has a PICC line. In my opinion, the patient could be changed to oral antibiotics. PICC line could be removed and next VAC change will be on Monday. Dr. Max can review this. Wound Care is arranging outpatient wound VAC, which will not be available until Monday or Monday. The patient lives out of town, but she does have transportation to come to the hospital for wound VAC twice a week changes. At this point, I will see her in the hospital as needed over the weekend. Please call if necessary. Dr. Max will see her Monday when they change her wound VAC. Job ID: [id number]
[2019-04-13] MEDS ORDERED: Clindamycin 150 MG CAP PO SCH (18:00)
[2019-04-13] MEDS: Clindamycin 150 MG CAP PO SCH (20:51)
[2019-04-13 22:31] LABS: HBSAg Index 0.21 S/CO (0-0.99); HIV (1/2) Antibody/Antigen Non-Reactive (NonReactive); HIV 1/2 INDEX 0.06 S/CO (<1.00); Hep B Surf Ag Non-Reactive S/CO (NonReactive); Hep C IgG Ab Non-Reactive (NonReactive); Hep C Index 0.09 S/CO (0-0.79)
--- NOTE | 2019-04-13 22:55 | PDOC.PN ---
- Subjective Encounter Start Date: 04/13/19 Encounter Start Time: 10:15 Patient seen and examined for Sepsis/Nec fas. No fever. Pain controlled. No new complaints. No overnight events - Objective MAR Reviewed: Yes Vital Signs & Weight: Vital Signs (12 hours) Temp Pulse Resp BP BP Pulse Ox 04/13/19 16:34 98.6 F 89 18 121/81 100 04/13/19 11:27 98.6 F 90 16 123/77 99 Weight Admit Weight 155 lb 8 oz Weight 155 lb 8 oz I&O: 04/12/19 04/13/19 04/14/19 06:59 06:59 06:59 Intake Total 2630 1950 2400 Balance 2630 1950 2400 Result Diagrams: 04/13/19 04:52 04/13/19 04:52 Phys Exam - Physical Examination Constitutional: NAD Respiratory: no wheezing, no rhonchi Cardiovascular: RRR, no rub Gastrointestinal: soft, non-tender, positive bowel sounds Musculoskeletal: no edema Neurological: moves all 4 limbs Dx/Plan - Plan DVT proph w/SCDs IMPRESSION: Necrotizing fascitis of Right arm s/p I&D HTN Polysubstance abuse PCN allergy PLAN: Cont Atbx - Vanc/Meropenem Cont current meds as below Ambulate Review of Systems - Review of Systems Respiratory: negative: Cough, Dry, Shortness of Breath, Hemoptysis, SOB with Excertion, Pleuritic Pain, Sputum, Wheezing Cardiovascular: negative: chest pain, palpitations, orthopnea, paroxysmal nocturnal dyspnea, edema, light headedness, other - Medications/Allergies Allergies/Adverse Reactions: Allergies Allergy/AdvReac Type Severity Reaction Status Date / Time Penicillins Allergy Verified 04/08/19 21:49 Medications: Current Medications Albuterol/Ipratropium (Duoneb) 3 ml NEB Q4H PRN PRN Reason: Wheezing Clindamycin HCl (Cleocin) 300 mg PO 0200,0800,1400,1999 [facility] Last Admin: 04/13/19 20:51 Dose: 300 mg Clonidine (Catapres) 0.1 mg PO Q4H PRN PRN Reason: SBP Greater Than 180 Dextrose/Water (Dextrose 50%) 25 gm SLOW IVP PRN PRN PRN Reason: Hypoglycemia Diphenhydramine HCl (Benadryl) 25 mg IVP Q3H PRN PRN Reason: Itching Last Admin: 04/12/19 02:36 Dose: 25 mg Diphenhydramine HCl (Benadryl) 25 mg PO Q3H PRN PRN Reason: Itching Diphenhydramine HCl (Benadryl) 25 mg IM Q3H PRN PRN Reason: Itching Famotidine (Pepcid) 20 mg PO BID [facility] Last Admin: 04/13/19 20:51 Dose: 20 mg Glucagon (Glucagon) 1 mg IM PRN PRN PRN Reason: Hypoglycemia Hydralazine HCl (Apresoline) 10 mg SLOW IVP Q4H PRN PRN Reason: SBP > 180 and HR < 70 Dextrose/Water (D5w) 1,000 mls @ 0 mls/hr IV .Q0M PRN PRN Reason: Hypoglycemia Fentanyl Citrate 2,000 mcg/ (Sodium Chloride) 100 mls @ 0 mls/hr IV INF PRN PRN Reason: Pain Last Admin: 04/12/19 21:10 Dose: 100 mls Potassium Chloride/Dextrose/Sod Cl (D5 1/2 Ns W/20 Meq Kcl) 1,000 mls @ 80 mls/ hr IV .[id number] [facility] Last Admin: 04/13/19 22:33 Dose: 1,000 mls Lorazepam (Ativan) 2 mg SLOW IVP Q6H PRN PRN Reason: Anxiety/Agitation Last Admin: 04/10/19 21:14 Dose: 2 mg Multivitamins (Theragran) 1 tab PO DAILY [facility] Last Admin: 04/13/19 09:36 Dose: 1 tab Naloxone HCl (Narcan) 0.2 mg IV Q5MIN PRN PRN Reason: Opiate Reversal Ondansetron HCl (Zofran) 4 mg IVP Q6H PRN PRN Reason: Nausea/Vomiting Polyethylene Glycol (Miralax) 17 gm PO DAILY PRN PRN Reason: Constipation Last Admin: 04/13/19 20:50 Dose: 17 gm Promethazine HCl (Phenergan) 12.5 mg IM Q4H PRN PRN Reason: Nausea/Vomiting Saccharomyces Boulardii (Florastor) 250 mg PO DAILY [facility] Last Admin: 04/13/19 09:36 Dose: 250 mg Senna/Docusate Sodium (Senokot S) 1 tab PO BID [facility] Last Admin: 04/13/19 20:51 Dose: 1 tab Sodium Chloride (Flush - Normal Saline) 10 ml IVF PRN PRN PRN Reason: Saline Flush Zolpidem Tartrate (Ambien) 5 mg PO HSPRN PRN PRN Reason: Insomnia
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
[2019-04-14] MEDS: Ondansetron PF 4 MG/2 ML Vial IVP PRN ×3 (01:35→14:55)
[2019-04-14] MEDS: Clindamycin 150 MG CAP PO SCH ×4 (01:35→20:51)
[2019-04-14] MEDS: Lorazepam 2 MG/ML VIAL SLOW IVP PRN (01:35)
[2019-04-14] MEDS: fentaNYL Citrate/PF 2,000 MCG in Sodium Chloride 0.9% 60 ML IV PRN (04:44)
[2019-04-14] MEDS: Saccharomyces boulardii 250 MG CAP PO SCH (08:54)
[2019-04-14] MEDS: Senokot S 8.6-50 MG TAB PO SCH ×2 (08:55→20:51)
[2019-04-14] MEDS: Multivit, Therapeutic 1 TAB PO SCH (08:55)
[2019-04-14] MEDS: Famotidine 20 MG TAB PO SCH ×2 (08:55→20:51)
[2019-04-14] MEDS: D5 1/2 NS w/20 mEq KCL 1,000 ML IV SCH ×2 (08:58→21:57)
[2019-04-14] MEDS ORDERED: Magnesium Citrate 300 ML BOT PO SCH (10:45)
--- NOTE | 2019-04-14 14:39 | PDOC.PN ---
- Subjective Encounter Start Date: 04/14/19 Encounter Start Time: 08:00 Pt seen for followup re; necrotizing fasciitis. Feels better. - Objective MAR Reviewed: Yes Vital Signs & Weight: Vital Signs (12 hours) Temp Pulse Resp BP Pulse Ox 04/14/19 11:59 98.3 F 97 16 96/65 100 04/14/19 07:12 97.6 F 72 14 106/74 97 04/14/19 04:16 98.5 F 87 16 113/71 98 Weight Admit Weight 155 lb 8 oz Weight 155 lb 8 oz I&O: 04/13/19 04/14/19 04/15/19 06:59 06:59 06:59 Intake Total 1950 4080 Balance 1950 4080 Result Diagrams: 04/13/19 04:52 04/13/19 04:52 Additional Labs: Labs reviewed by me Phys Exam - Physical Examination Constitutional: NAD HEENT: moist MMs Neck: supple Respiratory: clear to auscultation bilateral Cardiovascular: RRR Gastrointestinal: soft LUE wound vac Neurological: moves all 4 limbs Psychiatric: normal affect Dx/Plan (1) Necrotizing fasciitis of upper arm Code(s): M72.6 - NECROTIZING FASCIITIS Status: Acute Comment: continue clindamycin and doxycycline (2) Substance abuse Code(s): F19.10 - OTHER PSYCHOACTIVE SUBSTANCE ABUSE, UNCOMPLICATED Status: Chronic Comment: pt counseled (3) Hypertension Code(s): I10 - ESSENTIAL (PRIMARY) HYPERTENSION Status: Chronic Comment: controlled - Plan continue antibiotics, out of bed/ambulate * . Review of Systems - Review of Systems Respiratory: negative: Cough, Shortness of Breath, SOB with Excertion, Pleuritic Pain, Wheezing Cardiovascular: negative: chest pain, palpitations, orthopnea, paroxysmal nocturnal dyspnea, edema, light headedness - Medications/Allergies Allergies/Adverse Reactions: Allergies Allergy/AdvReac Type Severity Reaction Status Date / Time Penicillins Allergy Verified 04/08/19 21:49 Medications: Current Medications Albuterol/Ipratropium (Duoneb) 3 ml NEB Q4H PRN PRN Reason: Wheezing Clindamycin HCl (Cleocin) 300 mg PO 0200,0800,1400,2000 [facility] Last Admin: 04/14/19 08:54 Dose: 300 mg Clonidine (Catapres) 0.1 mg PO Q4H PRN PRN Reason: SBP Greater Than 180 Dextrose/Water (Dextrose 50%) 25 gm SLOW IVP PRN PRN PRN Reason: Hypoglycemia Diphenhydramine HCl (Benadryl) 25 mg IVP Q3H PRN PRN Reason: Itching Last Admin: 04/12/19 02:36 Dose: 25 mg Diphenhydramine HCl (Benadryl) 25 mg PO Q3H PRN PRN Reason: Itching Diphenhydramine HCl (Benadryl) 25 mg IM Q3H PRN PRN Reason: Itching Doxycycline Hyclate (Vibramycin) 100 mg PO BID [facility] Famotidine (Pepcid) 20 mg PO BID [facility] Last Admin: 04/14/19 08:55 Dose: 20 mg Glucagon (Glucagon) 1 mg IM PRN PRN PRN Reason: Hypoglycemia Hydralazine HCl (Apresoline) 10 mg SLOW IVP Q4H PRN PRN Reason: SBP > 180 and HR < 70 Dextrose/Water (D5w) 1,000 mls @ 0 mls/hr IV .Q0M PRN PRN Reason: Hypoglycemia Fentanyl Citrate 2,000 mcg/ (Sodium Chloride) 100 mls @ 0 mls/hr IV INF PRN PRN Reason: Pain Last Admin: 04/14/19 04:44 Dose: 100 mls Potassium Chloride/Dextrose/Sod Cl (D5 1/2 Ns W/20 Meq Kcl) 1,000 mls @ 80 mls/ hr IV .[id number] [facility] Last Admin: 04/14/19 08:58 Dose: Not Given Lorazepam (Ativan) 2 mg SLOW IVP Q6H PRN PRN Reason: Anxiety/Agitation Last Admin: 04/14/19 01:35 Dose: 2 mg Multivitamins (Theragran) 1 tab PO DAILY [facility] Last Admin: 04/14/19 08:55 Dose: 1 tab Naloxone HCl (Narcan) 0.2 mg IV Q5MIN PRN PRN Reason: Opiate Reversal Ondansetron HCl (Zofran) 4 mg IVP Q6H PRN PRN Reason: Nausea/Vomiting Last Admin: 04/14/19 08:56 Dose: 4 mg Polyethylene Glycol (Miralax) 17 gm PO DAILY PRN PRN Reason: Constipation Last Admin: 04/13/19 20:50 Dose: 17 gm Promethazine HCl (Phenergan) 12.5 mg IM Q4H PRN PRN Reason: Nausea/Vomiting Saccharomyces Boulardii (Florastor) 250 mg PO DAILY [facility] Last Admin: 04/14/19 08:54 Dose: 250 mg Senna/Docusate Sodium (Senokot S) 1 tab PO BID [facility] Last Admin: 04/14/19 08:55 Dose: 1 tab Sodium Chloride (Flush - Normal Saline) 10 ml IVF PRN PRN PRN Reason: Saline Flush Zolpidem Tartrate (Ambien) 5 mg PO HSPRN PRN PRN Reason: Insomnia
[2019-04-14] MEDS: Doxycycline 100 MG CAP PO SCH (20:51)
[2019-04-15] MEDS: Clindamycin 150 MG CAP PO SCH ×5 (01:32→22:56)
[2019-04-15] MEDS: Lorazepam 2 MG/ML VIAL SLOW IVP PRN (01:49)
[2019-04-15] MEDS: Famotidine 20 MG TAB PO SCH ×3 (08:59→22:55)
[2019-04-15] MEDS: Senokot S 8.6-50 MG TAB PO SCH ×3 (08:59→22:55)
[2019-04-15] MEDS: Doxycycline 100 MG CAP PO SCH ×3 (08:59→22:55)
[2019-04-15] MEDS: Multivit, Therapeutic 1 TAB PO SCH (08:59)
[2019-04-15] MEDS: Saccharomyces boulardii 250 MG CAP PO SCH (08:59)
[2019-04-15] MEDS ORDERED: HYDROcodone/Acetaminophen 10/325 mg Tablet PO PRN ×2 (12:54)
--- NOTE | 2019-04-15 14:31 | PDOC.PN ---
- Subjective Encounter Start Date: 04/15/19 Encounter Start Time: 08:40 Pt seen for followup re: necrotizing fasciitis. No complaints today. - Objective MAR Reviewed: Yes Vital Signs & Weight: Vital Signs (12 hours) Temp Pulse Resp BP BP Pulse Ox 04/15/19 11:59 98.1 F 100 14 148/82 H 100 04/15/19 08:00 98.1 F 106 H 16 111/72 98 04/15/19 04:00 98.1 F 91 16 139/81 93 L Weight Admit Weight 155 lb 8 oz Weight 155 lb 8 oz I&O: 04/14/19 04/15/19 04/16/19 06:59 06:59 06:59 Intake Total 4080 2894 Balance 4080 2894 Result Diagrams: 04/13/19 04:52 04/13/19 04:52 Additional Labs: Labs reviewed by me Phys Exam - Physical Examination Constitutional: NAD HEENT: moist MMs Neck: supple Respiratory: clear to auscultation bilateral Cardiovascular: RRR Gastrointestinal: soft Neurological: moves all 4 limbs Psychiatric: normal affect Dx/Plan (1) Necrotizing fasciitis of upper arm Code(s): M72.6 - NECROTIZING FASCIITIS Status: Acute Comment: on clindamycin and doxycycline. has wound vac R forearm (2) Substance abuse Code(s): F19.10 - OTHER PSYCHOACTIVE SUBSTANCE ABUSE, UNCOMPLICATED Status: Deleted Comment: pt counseled re: cessation (3) Hypertension Code(s): I10 - ESSENTIAL (PRIMARY) HYPERTENSION Status: Deleted Comment: controlled - Plan * . Review of Systems - Review of Systems Cardiovascular: negative: chest pain, palpitations, orthopnea, paroxysmal nocturnal dyspnea, edema, light headedness Gastrointestinal: negative: Nausea, Vomiting, Abdominal Pain, Diarrhea, Constipation, Melena, Hematochezia - Medications/Allergies Allergies/Adverse Reactions: Allergies Allergy/AdvReac Type Severity Reaction Status Date / Time Penicillins Allergy Verified 04/08/19 21:49 Medications: Current Medications Hydrocodone Bitart/Acetaminophen ([place] 10/325) 1 tab PO Q4H PRN PRN Reason: Moderate Pain (4-6) Hydrocodone Bitart/Acetaminophen ([place] 10/325) 2 tab PO Q4H PRN PRN Reason: Severe Pain (7-10) Albuterol/Ipratropium (Duoneb) 3 ml NEB Q4H PRN PRN Reason: Wheezing Clindamycin HCl (Cleocin) 300 mg PO 0200,0800,1400,2000 [facility] Last Admin: 04/15/19 13:49 Dose: 300 mg Clonidine (Catapres) 0.1 mg PO Q4H PRN PRN Reason: SBP Greater Than 180 Dextrose/Water (Dextrose 50%) 25 gm SLOW IVP PRN PRN PRN Reason: Hypoglycemia Diphenhydramine HCl (Benadryl) 25 mg IVP Q3H PRN PRN Reason: Itching Last Admin: 04/12/19 02:36 Dose: 25 mg Diphenhydramine HCl (Benadryl) 25 mg PO Q3H PRN PRN Reason: Itching Diphenhydramine HCl (Benadryl) 25 mg IM Q3H PRN PRN Reason: Itching Doxycycline Hyclate (Vibramycin) 100 mg PO BID [facility] Last Admin: 04/15/19 08:59 Dose: 100 mg Famotidine (Pepcid) 20 mg PO BID [facility] Last Admin: 04/15/19 08:59 Dose: 20 mg Glucagon (Glucagon) 1 mg IM PRN PRN PRN Reason: Hypoglycemia Hydralazine HCl (Apresoline) 10 mg SLOW IVP Q4H PRN PRN Reason: SBP > 180 and HR < 70 Dextrose/Water (D5w) 1,000 mls @ 0 mls/hr IV .Q0M PRN PRN Reason: Hypoglycemia Potassium Chloride/Dextrose/Sod Cl (D5 1/2 Ns W/20 Meq Kcl) 1,000 mls @ 80 mls/ hr IV .[id number] [facility] Last Admin: 04/14/19 21:57 Dose: Not Given Lorazepam (Ativan) 2 mg SLOW IVP Q6H PRN PRN Reason: Anxiety/Agitation Last Admin: 04/15/19 01:49 Dose: 2 mg Multivitamins (Theragran) 1 tab PO DAILY [facility] Last Admin: 04/15/19 08:59 Dose: 1 tab Naloxone HCl (Narcan) 0.2 mg IV Q5MIN PRN PRN Reason: Opiate Reversal Ondansetron HCl (Zofran) 4 mg IVP Q6H PRN PRN Reason: Nausea/Vomiting Last Admin: 04/14/19 14:55 Dose: 4 mg Polyethylene Glycol (Miralax) 17 gm PO DAILY PRN PRN Reason: Constipation Last Admin: 04/13/19 20:50 Dose: 17 gm Promethazine HCl (Phenergan) 12.5 mg IM Q4H PRN PRN Reason: Nausea/Vomiting Saccharomyces Boulardii (Florastor) 250 mg PO DAILY [facility] Last Admin: 04/15/19 08:59 Dose: 250 mg Senna/Docusate Sodium (Senokot S) 1 tab PO BID [facility] Last Admin: 04/15/19 08:59 Dose: 1 tab Sodium Chloride (Flush - Normal Saline) 10 ml IVF PRN PRN PRN Reason: Saline Flush Zolpidem Tartrate (Ambien) 5 mg PO HSPRN PRN PRN Reason: Insomnia
--- NOTE | 2019-04-15 15:12 | PRG ---
DATE OF SERVICE: 04/15/2019 SUBJECTIVE: Feeling better. No headaches. No respiratory symptoms. Less pain in the right upper extremity. No diarrhea. OBJECTIVE: VITAL SIGNS: Normal. Awake, alert, and oriented. LUNGS: Clear. HEART: S1, S2. Regular rate. EXTREMITIES: Right arm with negative pressure dressing, but no inflammatory changes around the dressing or tenderness. LABORATORY DATA: White cell count 6.5, hemoglobin 12.9. HIV, hepatitis C serology nonreactive. Microbiology as noted, bacillus and Clostridium perfringens. ASSESSMENT AND DISCUSSION: New questionable history of systemic lupus, prior pulmonary embolism, possible antiphospholipid syndrome and necrotizing fasciitis due to bacillus/Clostridium perfringens associated with possible damage from her work with stone garden in her house. The patient is improving after extensive debridement and is currently on doxycycline, clindamycin to be continued for another 7 days approximately. Wound care management to continue. Job ID: [id number]
[2019-04-15] MEDS: D5 1/2 NS w/20 mEq KCL 1,000 ML IV SCH ×2 (18:21→22:49)
[2019-04-16] MEDS: Clindamycin 150 MG CAP PO SCH ×2 (03:56→09:48)
[2019-04-16] MEDS: Famotidine 20 MG TAB PO SCH (09:48)
[2019-04-16] MEDS: Multivit, Therapeutic 1 TAB PO SCH (09:48)
[2019-04-16] MEDS: Saccharomyces boulardii 250 MG CAP PO SCH (09:48)
[2019-04-16] MEDS: Doxycycline 100 MG CAP PO SCH (09:48)
[2019-04-16] MEDS: Senokot S 8.6-50 MG TAB PO SCH (09:53)
--- NOTE | 2019-04-16 09:57 | PDOC.PN ---
- Subjective Encounter Start Date: 04/16/19 Encounter Start Time: 09:55 Patient seen and examined for RUE infection. No fever. No CP/SOB/N/V/Diarrhea. No other complaints. No overnight events - Objective MAR Reviewed: Yes Vital Signs & Weight: Vital Signs (12 hours) Temp Pulse Resp BP BP Pulse Ox 04/16/19 07:55 98.6 F 95 14 113/74 98 04/16/19 04:00 98.8 F 100 16 112/71 98 04/15/19 23:15 98.4 F 114 H 20 142/94 H 100 Weight Admit Weight 155 lb 8 oz Weight 155 lb 8 oz I&O: 04/15/19 04/16/19 04/17/19 06:59 06:59 06:59 Intake Total 2894 600 Balance 2894 600 Result Diagrams: 04/13/19 04:52 04/13/19 04:52 Phys Exam - Physical Examination Constitutional: NAD Respiratory: no wheezing, no rhonchi Cardiovascular: RRR, no rub Gastrointestinal: soft, non-tender, positive bowel sounds Musculoskeletal: no edema RUE wound vac+ Neurological: moves all 4 limbs Dx/Plan - Plan DVT proph w/SCDs IMPRESSION: Necrotizing fascitis of Right arm due to C perfringens and bacilus s/p I&D HTN Polysubstance abuse PCN allergy PLAN: Cont Atbx - Clindamycin/Doxy DC IVF Add Florastor AM labs Cont other meds as below Ambulate Review of Systems - Review of Systems Respiratory: negative: Cough, Dry, Shortness of Breath, Hemoptysis, SOB with Excertion, Pleuritic Pain, Sputum, Wheezing Cardiovascular: negative: chest pain, palpitations, orthopnea, paroxysmal nocturnal dyspnea, edema, light headedness, other Gastrointestinal: negative: Nausea, Vomiting, Abdominal Pain, Diarrhea, Constipation, Melena, Hematochezia, Other - Medications/Allergies Allergies/Adverse Reactions: Allergies Allergy/AdvReac Type Severity Reaction Status Date / Time Penicillins Allergy Verified 04/08/19 21:49 Medications: Current Medications Hydrocodone Bitart/Acetaminophen ([place] 10/325) 1 tab PO Q4H PRN PRN Reason: Moderate Pain (4-6) Hydrocodone Bitart/Acetaminophen ([place] 10/325) 2 tab PO Q4H PRN PRN Reason: Severe Pain (7-10) Albuterol/Ipratropium (Duoneb) 3 ml NEB Q4H PRN PRN Reason: Wheezing Clindamycin HCl (Cleocin) 300 mg PO 0400,1000,1600,2359 [facility] Last Admin: 04/16/19 09:48 Dose: 300 mg Clonidine (Catapres) 0.1 mg PO Q4H PRN PRN Reason: SBP Greater Than 180 Dextrose/Water (Dextrose 50%) 25 gm SLOW IVP PRN PRN PRN Reason: Hypoglycemia Diphenhydramine HCl (Benadryl) 25 mg IVP Q3H PRN PRN Reason: Itching Last Admin: 04/12/19 02:36 Dose: 25 mg Diphenhydramine HCl (Benadryl) 25 mg PO Q3H PRN PRN Reason: Itching Diphenhydramine HCl (Benadryl) 25 mg IM Q3H PRN PRN Reason: Itching Doxycycline Hyclate (Vibramycin) 100 mg PO BID [facility] Last Admin: 04/16/19 09:48 Dose: 100 mg Famotidine (Pepcid) 20 mg PO BID [facility] Last Admin: 04/16/19 09:48 Dose: 20 mg Glucagon (Glucagon) 1 mg IM PRN PRN PRN Reason: Hypoglycemia Hydralazine HCl (Apresoline) 10 mg SLOW IVP Q4H PRN PRN Reason: SBP > 180 and HR < 70 Dextrose/Water (D5w) 1,000 mls @ 0 mls/hr IV .Q0M PRN PRN Reason: Hypoglycemia Lorazepam (Ativan) 2 mg SLOW IVP Q6H PRN PRN Reason: Anxiety/Agitation Last Admin: 04/15/19 01:49 Dose: 2 mg Multivitamins (Theragran) 1 tab PO DAILY [facility] Last Admin: 04/16/19 09:48 Dose: 1 tab Naloxone HCl (Narcan) 0.2 mg IV Q5MIN PRN PRN Reason: Opiate Reversal Ondansetron HCl (Zofran) 4 mg IVP Q6H PRN PRN Reason: Nausea/Vomiting Last Admin: 04/14/19 14:55 Dose: 4 mg Polyethylene Glycol (Miralax) 17 gm PO DAILY PRN PRN Reason: Constipation Last Admin: 04/13/19 20:50 Dose: 17 gm Promethazine HCl (Phenergan) 12.5 mg IM Q4H PRN PRN Reason: Nausea/Vomiting Saccharomyces Boulardii (Florastor) 250 mg PO DAILY [facility] Last Admin: 04/16/19 09:48 Dose: 250 mg Saccharomyces Boulardii (Florastor) 250 mg PO DAILY [facility] Senna/Docusate Sodium (Senokot S) 1 tab PO BID [facility] Last Admin: 04/16/19 09:53 Dose: Not Given Sodium Chloride (Flush - Normal Saline) 10 ml IVF PRN PRN PRN Reason: Saline Flush Zolpidem Tartrate (Ambien) 5 mg PO HSPRN PRN PRN Reason: Insomnia
[2019-04-16 12:07] VITALS: BP 138/95; TEMP 98.5
--- NOTE | 2019-04-16 13:52 | DIS ---
DATE OF ADMISSION: 04/08/2019 DATE OF DISCHARGE: 04/16/2019 DISCHARGE DISPOSITION: Home. FOLLOWUP: 1. Follow up with primary care physician at [facility] in 1 week. 2. Follow up with Dr. Max, General Surgery, after a week or 2. 3. Follow up with Infectious Disease, Dr. Olson, after 2 weeks. 4. Lifestyle modification was emphasized. Home wound VAC has been arranged. The patient was seen and examined on the day of discharge. Please refer to my progress note. BRIEF HOSPITAL COURSE: The patient is a 33-year-old female with questionable systemic lupus erythematosus as well as methamphetamine abuse, presented to the hospital with right arm swelling. Workup was consistent with necrotizing fasciitis. Please refer to the history and physical for further details. The patient was evaluated by General Surgery and underwent incision and drainage on the day of admission. Wound VAC was placed. She had multiple washouts with wound VAC changes. Wound culture showed Bacillus as well as Clostridium perfringens. She was evaluated by Infectious Disease, Dr. Olson. IV antibiotics have been changed to oral clindamycin and doxycycline. She was also advised to take probiotic on a daily basis. Lifestyle modification including drug cessation was emphasized. Plan of care was discussed with the patient in detail. She stated understanding. FINAL DIAGNOSES: 1. Necrotizing fasciitis involving the right upper extremity, secondary to Bacillus as well as Clostridium perfringens, status post incision and drainage and wound VAC placement. 2. Hypertension. 3. Systemic lupus erythematosus. The patient was advised to follow up with Rheumatology as an outpatient. 4. Polysubstance abuse. 5. Penicillin allergy. 6. Medication noncompliance. Total time coordinating the discharge of this patient was 33 minutes. Job ID: [id number]
--- NOTE | 2019-04-16 15:05 | PDOC.GSPN ---
Surgery Progress Note: Subj - Subjective Narrative: Pain better controlled. Saw wound on dressing change today Surgery Progress Note: Obj - Vital signs Vital signs: Vital Signs - Most Recent Temp Pulse Resp BP Pulse Ox 98.5 F 109 H 18 138/95 H 100 04/16/19 12:00 04/16/19 12:00 04/16/19 12:00 04/16/19 12:00 04/16/19 12:00 - Physical Exam General: no distress Wound: wound vac (wound granulating in, no infection) Surgery Progress Note: Results - Labs Result Diagrams: 04/13/19 04:52 04/13/19 04:52 Surgery Progress Note: A/P - Problem (1) Necrotizing fasciitis of upper arm Code(s): M72.6 - NECROTIZING FASCIITIS Status: Acute - Plan Plan: Pain controlled on vac change -Outpatient vac, wound care set up -wrote for [place] -Will see her in wound care next week.
[2019-04-17] MEDS ORDERED: Saccharomyces boulardii 250 MG CAP PO SCH (09:00)
--- NOTE | 2019-04-18 06:19 | PQF ---
[employer] Reports [employer] CiaraRIJIMY BRAVO KIRSTEN ARZATE MD [id number] CLINICAL DOCUMENTATION CLARIFICATION FORM: POST DISCHARGE Addendum to original discharge summary date: ____ Late entry note date: __ DATE: 04/18/2019 ATTN: Kirsten Meredith Please exercise your independent, professional judgment in responding to the clarification form. Clinical indicators are provided on the bottom of this form for your review Based on your clinical judgment, can you please specify the type of debridement of subcutaneous and fascia. Please check appropriate box(s): [ ] Excisional Debridement: [ ] Excised [ ] Cut away [ ] Other: [ ] Non-excisional Debridement: (Removal by flushing, brushing, chemical, or washing) [ ] Incision and Drainage only (No Debridement): [ ] Other procedure diagnosis please specify: [ ] Unable to determine For continuity of documentation, please document condition throughout progress notes and discharge summary. Thank You. CLINICAL INDICATORS: Op note 04/[address] Max She had fluctuant area to the lateral antecubital fossa Op note [address] Max An incision was made from this to an indurated area in the upper biceps area all the way down to the third indurated area on the right anterior forearm Op note 04/[address] Max Dissection was taken through the subcutaneous tissue and fascia. The fascia was opened for the entirety of the wound. There was a collection of pus just underneath the antecubital fossa with some necrotic -looking tissue. This was all debrided. Op note 04/[address] Max There was no muscle involvement. There was no nonviable muscle present Op note 04/[address] Max She will need staged debridement in 48 hours. DS 04/[address] Bob Wound culture showed Bacillus as well as Clostridium perfringers RISK FACTORS: Op note- Necrotizing fasciitis, right arm DS- Systemic lupus erythematosus DS- polysusbtance abuse DS- Medication Non complinace TREATMENTS: Op note 04/08- Wide local debridement of Right arm Op note 04/10- Wound washout and VAC placement Clindamycin 300 mg PO-JAN 22 (This form is maintained as a part of the permanent medical record) 2014 [employer]. All Rights Reserved Marisela [email or web address] [not provided] MTDD
== END 2019-04-16 14:50 | disposition home or self-care (01) | DRG 501 ==
LOC: ERS 00:56 → SURG A 03:19 → EEVIPCON 03:19
PROVIDERS: ADMIT Internal Medicine; ATTEND Internal Medicine
PROC: 0JDD0ZZ Extraction of Right Upper Arm Subcutaneous Tissue and Fascia, Open Approach (ICD-10-PCS; principal; 2019-04-08)
PROC: 3E10X8Z Irrigation of Skin and Mucous Membranes using Irrigating Substance (ICD-10-PCS; 2019-04-10)
PROC: 0JQD0ZZ Repair Right Upper Arm Subcutaneous Tissue and Fascia, Open Approach (ICD-10-PCS; 2019-04-12)
DX: M72.6 Necrotizing fasciitis (principal); D68.61 Antiphospholipid syndrome; B96.7 Clostridium perfringens [C. perfringens] as the cause of diseases classified elsewhere; B96.89 Other specified bacterial agents as the cause of diseases classified elsewhere; I10 Essential (primary) hypertension; M32.9 Systemic lupus erythematosus, unspecified; F19.10 Other psychoactive substance abuse, uncomplicated; Z88.0 Allergy status to penicillin; Z91.14 Patient's other noncompliance with medication regimen; Z86.711 Personal history of pulmonary embolism
CPT/HCPCS: 10061; 36415; 80048; 80202; 82550; 83605; 84703; 85025; 86140; 86803; 87040; 87070; 87076; 87205; 87340; 87389; 96365; 96375; 99406; J0670; J1100; J1200; J2001; J2060; J2185; J2250; J2270; J2405; J2704; J2765; J3010; J3370; J3486; J3490; J7050; Q9966

== ENCOUNTER 2019-04-22 14:31 | Emergency (ER) | payer SELFPAY ==
[2019-04-22 15:58] LABS: #Basophils 0.1 thou/uL (0.0-0.2); #Eosinphils 0.1 thou/uL (0.0-0.7); #Monocytes 0.9 thou/uL (0.11-0.59); #Neutrophils 4.3 thou/uL (1.40-6.50); %Basophils 1.1 % (0.0-1.0); %Eosinophils 1.3 % (0.0-10.0); %Lymphocytes 27.4 % (21.0-51.0); %Monocytes 11.9 % (0.0-10.0); %Neutrophils 58.2 % (42.0-75.0); Hemoglobin 11.4 g/dL (12.0-16.0); Mean Corpuscular HGB CONC 33.4 g/dL (32.0-36.0); Mean Corpuscular Hemoglobin 35.1 pg (27.0-31.0); Mean Platelet Volume 6.6 fL (7.4-10.4); Platelet Count 402 thou/uL (130-400); Red Blood Cell (RBC) Count 3.23 mill/uL (4.20-5.40); White Blood Cell (WBC) Count 7.4 thou/uL (4.8-10.8)
[2019-04-22 16:22] LABS: ALT (SGPT) 35 U/L (8-55); AST (SGOT) 16 U/L (5-34); Albumin 4.2 g/dL (3.5-5.0); Alkaline Phosphatase 89 U/L (40-150); Anion Gap 11 mmol/L (10-20); BUN (Urea Nitrogen) 18 mg/dL (7.0-18.7); Bilirubin, Total 0.3 mg/dL (0.2-1.2); Calc. Creatinine Clearance 0 mL/min (70-130); Calcium 9.6 mg/dL (7.8-10.44); Carbon Dioxide 26 mmol/L (22-29); Chloride 107 mmol/L (98-107); Estimated GFR-MDRD 83; Globulin 2.6 g/dL (2.4-3.5); Glucose 81 mg/dL (70-105); Protein, Total 6.8 g/dL (6.0-8.3); Sodium 140 mmol/L (136-145)
== END 2019-04-22 16:56 | disposition home or self-care (01) ==
LOC: ERS 14:31
DX: S51.001A Unspecified open wound of right elbow, initial encounter (principal); T85.698A Other mechanical complication of other specified internal prosthetic devices, implants and grafts, initial encounter; F17.210 Nicotine dependence, cigarettes, uncomplicated; X58.XXXA Exposure to other specified factors, initial encounter
CPT/HCPCS: 36415; 80053; 83605; 85025; 86140; 87040; 87149; 99283

== ENCOUNTER 2019-04-23 13:40 | Outpatient (CLI) | payer SELFPAY ==
[~2019-04-23 13:40] MED LIST: Sodium Chloride 0.9% 15 ML NEB ONE
== END 2019-04-23 13:41 | disposition home or self-care (01) ==
LOC: WCC 13:40
PROVIDERS: ATTEND Family Medicine
DX: T81.89XD Other complications of procedures, not elsewhere classified, subsequent encounter (principal); Z98.890 Other specified postprocedural states
CPT/HCPCS: 97606; A4218

== ENCOUNTER 2019-04-26 13:24 | Outpatient (CLI) | payer SELFPAY ==
[2019-04-26] MEDS ORDERED: Sodium Chloride 0.9% 15 ML NEB ONE (15:00)
== END 2019-04-26 13:25 | disposition home or self-care (01) ==
LOC: WCC 13:24
PROVIDERS: ATTEND Family Medicine
DX: T81.89XD Other complications of procedures, not elsewhere classified, subsequent encounter (principal)
CPT/HCPCS: A4218

== ENCOUNTER 2019-04-26 15:54 | Emergency (ER) | payer SELFPAY ==
[2019-04-26 18:09] LABS: #Basophils 0.1 thou/uL (0.0-0.2); #Eosinphils 0.1 thou/uL (0.0-0.7); #Lymphocytes 1.9 thou/uL (1.20-3.40); #Monocytes 0.6 thou/uL (0.11-0.59); #Neutrophils 2.9 thou/uL (1.40-6.50); %Basophils 1.1 % (0.0-1.0); %Eosinophils 1.2 % (0.0-10.0); %Lymphocytes 34.7 % (21.0-51.0); %Monocytes 10.1 % (0.0-10.0); %Neutrophils 52.8 % (42.0-75.0); Hemoglobin 11.7 g/dL (12.0-16.0); Mean Corpuscular HGB CONC 33.3 g/dL (32.0-36.0); Mean Corpuscular Hemoglobin 34.7 pg (27.0-31.0); Mean Platelet Volume 6.6 fL (7.4-10.4); Platelet Count 385 thou/uL (130-400); Red Blood Cell (RBC) Count 3.38 mill/uL (4.20-5.40); White Blood Cell (WBC) Count 5.5 thou/uL (4.8-10.8)
[2019-04-26 18:31] LABS: ALT (SGPT) 20 U/L (8-55); AST (SGOT) 17 U/L (5-34); Albumin 4.1 g/dL (3.5-5.0); Alkaline Phosphatase 78 U/L (40-150); Anion Gap 13 mmol/L (10-20); BUN (Urea Nitrogen) 16 mg/dL (7.0-18.7); Bilirubin, Total 0.4 mg/dL (0.2-1.2); Calc. Creatinine Clearance 0 mL/min (70-130); Calcium 9.3 mg/dL (7.8-10.44); Carbon Dioxide 25 mmol/L (22-29); Chloride 106 mmol/L (98-107); Estimated GFR-MDRD 87; Glucose 74 mg/dL (70-105); Potassium 3.5 mmol/L (3.5-5.1); Protein, Total 7.1 g/dL (6.0-8.3); Sodium 140 mmol/L (136-145)
== END 2019-04-26 18:58 | disposition home or self-care (01) ==
LOC: ERS 15:54
DX: R79.89 Other specified abnormal findings of blood chemistry (principal); F17.210 Nicotine dependence, cigarettes, uncomplicated
CPT/HCPCS: 36415; 80053; 83605; 85025; 87040; 99283

== ENCOUNTER 2019-05-01 15:04 | Outpatient (CLI) | payer SELFPAY ==
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
== END 2019-05-01 15:05 | disposition home or self-care (01) ==
LOC: WCC 15:04
PROVIDERS: ATTEND Family Medicine
DX: T81.89XD Other complications of procedures, not elsewhere classified, subsequent encounter (principal); M32.9 Systemic lupus erythematosus, unspecified; D68.61 Antiphospholipid syndrome; I10 Essential (primary) hypertension; Z86.711 Personal history of pulmonary embolism
CPT/HCPCS: A4218

== ENCOUNTER 2019-05-27 11:50 | Outpatient (CLI) | payer SELFPAY ==
--- NOTE | 2019-05-27 11:53 | PRG ---
DATE OF SERVICE: 05/27/2019 HISTORY: Ms. Joanna Wild is a 33-year-old, who presents to the Wound Center for evaluation of a wound of the ventral surface of the right forearm subsequent to surgery for necrotizing fasciitis. On 04/10/2019, the patient underwent wound washout in conjunction with wound VAC placement. On 04/12/2019, the patient underwent a dressing change of the wound VAC along with partial closure of the right arm wound. [facility] from [facility], the patient was referred to the Wound Center for assistance with dressing changes of the wound VAC. Approximately 1 week prior to the patient's visit on 05/01/2019, Ms. Wild discontinued the wound VAC on her own. She stated that she was unable to tolerate the drape applied with the wound VAC possibly because of irritation of her skin from the adhesive. The patient performed dressing changes of Xeroform initially. More recently, the patient has been performing dressing changes of vitamin E cream in conjunction with a Band-Aid. PHYSICAL EXAMINATION: VITAL SIGNS: Temperature 98.6, pulse 105, respirations 20, blood pressure 135/83. EXTREMITIES: A wound of the ventral surface of the right forearm is present, which measures approximately 4.0 x 0.9 cm. No purulent drainage is associated with the wound. No erythema of the skin surrounding the wound is present. No maceration of the skin of the periwound is noted. No significant edema of the right upper extremity is appreciated on exam today. ASSESSMENT AND PLAN: 1. Wound of ventral surface of right forearm as described above. As stated above, the patient discontinued negative pressure therapy on her own, stating she was unable to tolerate the adhesive of the drape applied with the wound VAC. The patient discontinued negative pressure therapy on her own approximately 1 week prior to her visit on 05/01/2019. Dressing changes of vitamin E cream will be continued on a daily basis after cleansing and irrigation. The patient will continue to perform her own dressing changes. I will see Ms. Wild again in 2 weeks. Arrangements will be made for the patient to be seen by Dr. Max if possible in view of the scar tissue crossing the ventral surface of the elbow joint. 2. Systemic lupus erythematosus. 3. Antiphospholipid syndrome. 4. History of pulmonary embolus multiple. 5. Hypertension. Job ID: [id number]
[2019-05-27] MEDS ORDERED: Sodium Chloride 0.9% 15 ML NEB ONE (18:00)
== END 2019-05-27 11:51 | disposition home or self-care (01) ==
LOC: WCC 11:50
PROVIDERS: ATTEND Family Medicine
DX: L98.499 Non-pressure chronic ulcer of skin of other sites with unspecified severity (principal); M32.9 Systemic lupus erythematosus, unspecified; I10 Essential (primary) hypertension; D68.61 Antiphospholipid syndrome; Z86.711 Personal history of pulmonary embolism
CPT/HCPCS: A4218

== ENCOUNTER 2019-06-19 09:43 | Emergency (ER) | payer SELFPAY ==
[2019-06-19 10:38] LABS: #Eosinphils 0.1 thou/uL (0.0-0.7); #Lymphocytes 1.3 thou/uL (1.20-3.40); #Monocytes 0.3 thou/uL (0.11-0.59); #Neutrophils 3.7 thou/uL (1.40-6.50); %Basophils 0.6 % (0.0-1.0); %Lymphocytes 23.3 % (21.0-51.0); %Monocytes 6.3 % (0.0-10.0); %Neutrophils 68.8 % (42.0-75.0); Hemoglobin 14.8 g/dL (12.0-16.0); Mean Corpuscular HGB CONC 33.9 g/dL (32.0-36.0); Platelet Count 360 thou/uL (130-400); RBC Distribution Width 11.3 % (11.5-14.5); Red Blood Cell (RBC) Count 4.24 mill/uL (4.20-5.40); White Blood Cell (WBC) Count 5.4 thou/uL (4.8-10.8)
[2019-06-19 11:40] LABS: Albumin 3.6 g/dL (3.5-5.0)
[2019-06-19 11:41] LABS: Chloride 108 mmol/L (98-107); Sodium 140 mmol/L (136-145)
[2019-06-19 11:42] LABS: Calcium 8.8 mg/dL (7.8-10.44); Glucose 91 mg/dL (70-105)
[2019-06-19 11:43] LABS: Globulin 2.8 g/dL (2.4-3.5); Protein, Total 6.4 g/dL (6.0-8.3)
[2019-06-19 11:44] LABS: Anion Gap 10 mmol/L (10-20); Carbon Dioxide 26 mmol/L (22-29)
[2019-06-19 11:45] LABS: Alkaline Phosphatase 61 U/L (40-150); Bilirubin, Total Less than 0.2 mg/dL (0.2-1.2)
[2019-06-19 11:46] LABS: Calc. Creatinine Clearance 0 mL/min (70-130); Estimated GFR-MDRD Greater than 90
[2019-06-19 11:47] LABS: BUN (Urea Nitrogen) 16 mg/dL (7.0-18.7)
[2019-06-19 11:48] LABS: AST (SGOT) 14 U/L (5-34)
[2019-06-19 11:49] LABS: ALT (SGPT) 12 U/L (8-55)
== END 2019-06-19 12:00 | disposition home or self-care (01) ==
LOC: ERS 09:43
DX: T81.31XA Disruption of external operation (surgical) wound, not elsewhere classified, initial encounter (principal); R53.83 Other fatigue; R00.0 Tachycardia, unspecified; Z71.6 Tobacco abuse counseling; F17.210 Nicotine dependence, cigarettes, uncomplicated
CPT/HCPCS: 36415; 80053; 83605; 85025; 96360; 99406